=== PATIENT | male | born 1975 | race Caucasian/White ===

== ENCOUNTER 2018-06-25 16:06 | Emergency (ER) | payer SELFPAY ==
[2018-06-25] MEDS: LIDOCAINE 1%/EPI (MDV) 50 ML INJ INJ (17:00)
[2018-06-25] MEDS: DIPHTH/TET/ACEL PERTUSS (ADULT) 0.5 ML VIAL IM* (17:02)
[2018-06-25] MEDS: LIDOCAINE 1%/EPI (1:100,000) (MDV) 20 ML INJ (18:28)
== END 2018-06-25 18:29 | disposition home or self-care (01) ==
LOC: FTE 16:06
DX: S01.81XA Laceration without foreign body of other part of head, initial encounter (principal); S00.81XA Abrasion of other part of head, initial encounter; S00.31XA Abrasion of nose, initial encounter; W26.8XXA Contact with other sharp object(s), not elsewhere classified, initial encounter; Y92.9 Unspecified place or not applicable; Z23 Encounter for immunization
CPT/HCPCS: 12002; 90471; 90715; 99283-25

== ENCOUNTER 2018-06-27 05:44 | Emergency (ER) | payer SELFPAY | END 2018-06-27 06:42 | disposition home or self-care (01) | LOC: FTE 05:44 | DX: Z48.01 Encounter for change or removal of surgical wound dressing (principal) | CPT/HCPCS: 99281 ==

== ENCOUNTER 2018-07-02 06:12 | Emergency (ER) | payer SELFPAY | END 2018-07-02 07:22 | disposition home or self-care (01) | LOC: FTE 06:12 | DX: Z48.02 Encounter for removal of sutures (principal) | CPT/HCPCS: 99281 ==